=== PATIENT | female | born 1970 | race Caucasian/White ===

== ENCOUNTER 2021-03-04 13:23 | Emergency (ER) | payer BC, SELFPAY ==
[2019-01-05 16:54] VITALS: BMI 21.1
[2021-03-04 13:25] VITALS: BP 131/82; PULSE 87; RESP 14; TEMP 37.1; O2SAT 99; BMI 20.4
[2021-03-04 15:16] LABS: Bacteria 0 SEEN /hpf (None Seen); Mucous, Urine 0 SEEN /hpf (<or=2+); Red Blood Cells-Urine 0 SEEN /hpf (0-5); Squamous Epithelial Cells - UA 0 SEEN /hpf (5-10); White Blood Cells 0 SEEN /hpf (0-5)
[2021-03-04 15:18] LABS: Color, Urine Yellow (Yellow); Glucose, Dipstick Normal (Normal); Ketone-Dipstick 15 mg/dl (Negative); Leukocyte Esterase-Dipstick Negative /ul (Negative); Nitrite-Dipstick Negative (Negative); Occult Blood-Urine Negative /ul (Negative); Protein-Dipstick Negative (Negative); Urine Bilirubin Dipstick Negative (Negative); Urine Clarity Clear (Clear); Urine Urobilinogen Normal (Normal)
[2021-03-04 16:22] VITALS: BP 141/82; PULSE 65; RESP 14; O2SAT 99
--- NOTE | 2021-03-04 16:33 | CT_ITS ---
HISTORY: right groin/flank pain EXAMINATION: CT Abdomen And Pelvis W/ Contrast Injection TECHNIQUE: Helically acquired images were obtained of the abdomen and pelvis following IV contrast. A radiation dose optimization technique was used for this scan. IV Contrast dosage and agent: 100mL Isovue-300 Oral contrast: None. COMPARISON: None FINDINGS: LOWER CHEST: Lung bases are clear. No cardiomegaly or pericardial effusion. LIVER: Homogeneous. No focal mass. GALLBLADDER AND BILIARY TREE: No calcified gallstones. No gallbladder distension or wall edema. No intra- or extrahepatic biliary ductal dilation. PANCREAS: No focal cystic or solid mass. SPLEEN: Normal size without focal cystic or solid mass. ADRENAL GLANDS: No nodules. KIDNEYS AND URETERS: Normal renal size and position. No hydronephrosis. PERITONEUM: No ascites or free air. BOWEL: No evidence of acute appendicitis. No stomach or bowel distension. No focal inflammatory bowel wall changes. LYMPH NODES: No enlarged mesenteric or retroperitoneal lymph nodes. VESSELS: Aorta is non-dilated. URINARY BLADDER: Unremarkable. REPRODUCTIVE ORGANS: Uterus absent. 7.1 cm right adnexal cyst. ABDOMINAL WALL: No discrete abdominal or pelvic wall hernia. BONES: No acute or aggressive abnormality. CT/Abdomen/Pelvis W IV Cont ONLY IMPRESSION: 7.1 cm right adnexal cyst. Recommend gynecological consultation for possible excision. Otherwise no acute findings in the abdomen or pelvis. Individualized dose optimization techniques were used for this CT. at 1837 Reported and signed by: Twan Omalley MD Electronically Signed: Twan Omalley MD at 18:36 EDT Tel , Service support ,
--- NOTE | 2021-03-04 16:39 | EDS_ITS ---
HPI HPI - GI History of Present Illness Chief Complaint: Flank Pain Informant: patient Abdominal Pain/Flank Pain Onset: Weeks Timing: Intermittent Narrative Narrative: Patient is a 50-year-old female that denies any significant past medical history presenting with weeks of intermittent right flank pain. States that her right lower back and radiates to her groin. She states some days does not have another days last all day. She the pain yesterday but came back today. Her family was concerned it could be appendicitis which is why she finally came to emergency room. She is intermittently taken ibuprofen with no relief of her symptoms. Is not had any today. Has some associated nausea but no vomiting. No urinary symptoms. No abnormal vaginal discharge. Patient states she had a partial hysterectomy in the past. She describes the pain as like my ovary is in a vice environmental monitoring specialist. She states she is not sure if it is actually her ovary or not. She denies any fever or chills. She does state any radiation of pain down her leg. She denies any associated numbness or tingling. No saddle anesthesia. No midline back pain. No injuries. No other complaints at this time. She denies any known history of hernias. 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 PFSH PFS Home Medications NK 01/05/19 [History Last Taken Unknown] Allergy/AdvReac Type Severity Reaction Status Date / Time hydromorphone AdvReac Itching Verified 03/04/21 13:25 Surgical History History of partial hysterectomy Social History Smoking Status: Former smoker ROS ROS ED Constitutional Constitutional ED: Denies chills, fever(s) or malaise Eyes Eyes: Denies blurry vision or loss of vision ENT ENT ED: Denies rhinorrhea or sore throat Cardiovascular Cardiovascular: Denies chest pain or dizziness Respiratory/Chest Respiratory/Chest: Denies cough or dyspnea Gastrointestinal Gastrointestinal: Reports abdominal pain; Denies constipation, diarrhea or vomiting Genitourinary Genitourinary ED: Denies dysuria or hematuria Musculoskeletal Musculoskeletal: Denies arthralgias or myalgias Integumentary Denies rash or wounds Neurologic Neurologic: Denies focal weakness or headache(s) Psychiatric Psychiatric: Denies anxiety or behavioral changes EXAM Physical Exam Const Vital Signs: 03/04/21 13:25 03/04/21 16:22 03/04/21 17:30 Temperature 98.7 F Temperature Source Temporal Pulse Rate 87 65 Respiratory Rate 14 14 Blood Pressure 131/82 H 141/82 H 132/106 H Blood Pressure Mean 98 101 114 Pulse Ox 99 99 100 Oxygen Delivery Method Room Air Room Air Room Air 03/04/21 18:38 03/04/21 18:59 Temperature Temperature Source Pulse Rate Respiratory Rate Blood Pressure 138/85 H 140/87 H Blood Pressure Mean 102 Pulse Ox 98 100 Oxygen Delivery Method Room Air Positive well nourished, well developed and no apparent distress General Appearance ED: well developed HEENT Reports normocephalic atraumatic Nose: no nasal discharge General Ear: hearing grossly impaired External Ear: external ears normal Mouth ED: Yes moist mucous membranes abnormal Mouth: moist mucous membranes abnormal Eyes PERRL and EOMs intact bilaterally Neck full ROM and no meningeal signs Chest Wall inspection of chest normal Resp normal respiratory effort and normal air movement Cardio regular rate and regular rhythm GI normal to inspection, nondistended, normoactive bowel sounds and non-distended GI Narrative: Patient has tenderness to palpation and the right groin region. No palpable masses appreciated. No pain at McBurney's point. Auscultation: normoactive bowel sounds Palpation: soft; Negative for guarding or rigid Back/Spine no CVA tenderness Thoracic Spine / Upper Back: Negative for thoracic spinal tenderness Lumbar Spine / Lower Back: Negative for lumbar spinal tenderness Extremity normal to inspection and full ROM Neuro oriented x3 and no focal motor deficits Sensorium / Orientation: alert and oriented to person Motor Exam: Negative for general weakness Psych mental status grossly normal and thought process normal Skin no rashes or lesions noted and no wounds Rashes: no rashes MDM MDM MDM Narrative Medical decision making narrative: Patient evaluated for intermittent right groin pain that is been present for the past month. She is not had evaluated yet. Her exam she does have tenderness in her right groin. She appears nontoxic in no acute distress. I do not appreciate any palpable hernia. No overlying rash. Lab work including urinalysis, CBC and CMP are largely unremarkable. CT the abdomen pelvis does show a large 7 centimeter right adnexal cyst. I suspect this is the cause of her pain. She is counseled that she will need follow-up with gynecology for further evaluation of this. She is referred to gynecology on-call, Dr. Webb. She is to continue to use NSAID therapy for pain. Lab Data Attestation: I reviewed the patient's lab results. Labs: Laboratory Results - last 24 hr 03/04/21 03/04/21 03/04/21 14:35 14:35 14:46 WBC 9.4 RBC 4.56 Hgb 14.7 Hct 44.6 MCV 97.8 MCH 32.2 H MCHC 33.0 RDW Std Deviation 42.8 RDW Coeff of Roxann 11.8 Plt Count 246 MPV 9.9 Immature Gran % (Auto) 0.300 Neut % (Auto) 74.0 H Lymph % (Auto) 18.3 L [place] % (Auto) 6.0 Eos % (Auto) 0.9 Baso % (Auto) 0.5 Absolute Neuts (auto) 6.9 Absolute Lymphs (auto) 1.72 Nucleated RBC % 0 Sodium 139 Potassium 3.7 Chloride 106 Carbon Dioxide 27.0 Anion Gap 6 BUN 9 Creatinine 0.72 Estim Creat Clear Calc 91.87 Est GFR (MDRD) Af Amer 111 Est GFR (MDRD) Non-Af 92 BUN/Creatinine Ratio 12.5 Glucose 95 Calcium 9.7 Total Bilirubin 0.90 AST 21 ALT 22 Alkaline Phosphatase 93 Total Protein 8.4 H Albumin 4.4 Globulin 4.0 Albumin/Globulin Ratio 1.1 Urine Color Yellow Urine Clarity Clear Urine pH 6.0 Ur Specific [place] 1.010 Urine Protein Negative Urine Glucose (UA) Normal Urine Ketones 15 H Urine Occult Blood Negative Urine Nitrite Negative Urine Bilirubin Negative Urine Urobilinogen Normal Ur Leukocyte Esterase Negative Urine RBC 0 SEEN Urine WBC 0 SEEN Ur Squamous Epith Cells 0 SEEN Urine Bacteria 0 SEEN Urine Mucus 0 SEEN Radiography Diagnostic Testing: Radiology Impression Abdomen/Pelvis CT 03/04/21 16:33 IMPRESSION: 7.1 cm right adnexal cyst. Recommend gynecological consultation for possible excision. Otherwise no acute findings in the abdomen or pelvis. Individualized dose optimization techniques were used for this CT. at 1837 Reported and signed by: Twan Omalley MD Electronically Signed: Twan Omalley MD at 18:36 EDT Tel , Service support , Discharge Plan Triage Chief Complaint: Flank Pain ED Provider: Amber Malone Dx/Rx/DC Orders Clinical Impression: Right adrenal mass Instructions: ED Ovarian Cyst Prescriptions: No Action NK RF: 0 Primary Care Provider: Care Physician,No Primary Referrals: Francisco Webb MD [STAFF PHYSICIAN] - Care Physician,No Primary [Primary Care Provider] - Activity Restrictions/Additional Instructions: Alternate Tylenol and ibuprofen for pain. You have a cyst in the right adnexal/ovarian area that is likely causing her pain. Disposition Disposition: Home, Self Care Discharge Date/Time: 03/04/21 19:08
[2021-03-04] MEDS: Ketorolac 15 MG/ML Vial IV (16:50)
[2021-03-04 17:30] VITALS: BP 132/106; O2SAT 100
[2021-03-04 17:37] LABS: Absolute Lymphocyte Count 1.72 X10^3/uL (0.83-4.51); Absolute Neutrophil Count 6.9 X10^3/uL (2.0-7.7); Basophil# 0.05 X10^3/uL; Basophil% 0.5 % (0-1); Eosinophil# 0.08 X10^3/uL; Eosinophils% 0.9 % (0-5); Hematocrit 44.6 % (37-47); Hemoglobin 14.7 g/dL (12.0-15.0); Lymphocyte # 1.72 X10^3/ul (0.83-4.51); Lymphocyte % 18.3 % (19-41); Mean Corpuscular Hgb 32.2 pg (27.0-32.0); Mean Corpuscular Volume 97.8 fL (81-99); Mean Platelet Vol. 9.9 fl (6.2-12.0); Monocyte# 0.56 X10^3/uL; NRBC Flagged by Analyzer 0 % (0-5); Neutrophil # 6.94 X10^3/uL (2.7-7.7); Platelet Count 246 K/mm3 (150-450); RBC Distribution Width CV 11.8 % (11.6-14.6); RBC Distribution Width SD 42.8 fl (35.1-43.9); Red Blood Count 4.56 M/mm3 (4.2-5.4); White Blood Count 9.4 K/mm3 (4.4-11.0)
[2021-03-04 17:50] LABS: ALB/GLOB Ratio 1.1 RATIO (0.9-2.4); AST(SGOT) 21 U/L (15-37); Alanine Aminotransfer ALT/SGPT 22 U/L (13-56); Albumin, Serum 4.4 g/dL (3.2-5.0); Alkaline Phosphatase 93 U/L (45-117); Anion Gap 6 (5-15); BUN 9 mg/dL (7-18); BUN/Creat Ratio 12.5 RATIO (10-20); Calcium,Total 9.7 mg/dL (8.5-10.1); Chloride 106 mmol/L (98-107); Creatinine, Serum 0.72 mg/dL (0.55-1.02); EST Glomerular Filtration Rate 92 mL/min (>60); Est Glom Filt Rate - Afr Amer 111 mL/min (>60); Estimated Creatinine Clearance 91.87 ml/min; Glucose 95 mg/dL (74-106); Potassium 3.7 mmol/L (3.5-5.1); Protein, Total 8.4 g/dL (6.4-8.2); Sodium Level 139 mmol/L (136-145)
[2021-03-04 18:38] VITALS: BP 138/85; O2SAT 98
[2021-03-04 18:59] VITALS: BP 140/87; O2SAT 100
== END 2021-03-04 19:08 | disposition home or self-care (01) ==
PROVIDERS: Emergency Provider Emergency Medicine
DX: E27.9 Disorder of adrenal gland, unspecified (principal); Z87.891 Personal history of nicotine dependence
CPT/HCPCS: 74177; 80053; 81001; 85025; 96374; 99285; Q9967; A4216

== ENCOUNTER → 2021-03-11 14:31 | Outpatient (CLI) | payer BC, SELFPAY ==
[2021-03-04 13:25] VITALS: BMI 20.4
[2021-03-11 15:09] LABS: Hematocrit 39.8 % (37-47); Hemoglobin 13.5 g/dL (12.0-15.0); Mean Corp Hgb Conc 33.9 g/dL (32-36); Mean Corpuscular Hgb 32.8 pg (27.0-32.0); Mean Corpuscular Volume 96.6 fL (81-99); Mean Platelet Vol. 9.7 fl (6.2-12.0); Platelet Count 234 K/mm3 (150-450); RBC Distribution Width CV 11.8 % (11.6-14.6); Red Blood Count 4.12 M/mm3 (4.2-5.4); White Blood Count 7.1 K/mm3 (4.4-11.0)
[2021-03-15 09:44] LABS: Cancer Antigen 125 7.1 U/mL (0.0-38.1); Carbohydrate Ag 19-9 2261 10 U/mL (0-35); Carcinoembryonic Antigen 4.7 ng/mL (0.0-4.7)
== END ==
PROVIDERS: Visit Provider Obstetrics & Gynecology
DX: R19.07 Generalized intra-abdominal and pelvic swelling, mass and lump (principal); N83.209 Unspecified ovarian cyst, unspecified side
CPT/HCPCS: 36415; 82378; 85027; 86301; 86304; 86900; 86901

== ENCOUNTER 2021-03-20 07:31 | Day surgery (SDC) | payer BC, SELFPAY ==
[2021-03-20] VITALS (8 sets, daily range): BP systolic 114–144; BP diastolic 69–91; PULSE 64–87; RESP 14–18; TEMP 36.5–37; O2SAT 98–100; BMI 21.0
[2021-03-20] MEDS: Lactated Ringers 1,000 ML 100 ML IV (07:40)
--- NOTE | 2021-03-20 08:27 | HP.PCM.OB_ITS ---
History and Physical Date of Admission: 03/20/21 Surgical History and Physical Name: AYLEEN MARTINEZ Age: 50 Date of : 1970 Ayleen Martinez, a 50 year old female 2 0 0 0 2, presents for Diagnostic laparoscopy, right ovarian cystectomy, possible right oophorectomy on March 20 at 8 :30. -- -- Ayleen presents here today as referral from [facility] ED for a 7 cm (R) Ovarian Cyst found on CT Scan on 03-04-21 when she presented there in severe pain. 50 y.o. G 2 P 2 previous smoker(quit many years ago) with history of Hysterectomy in [address] Landa at [facility]. Reports about a month ago, she started with a cramping/twinge type pain on her RLQ that progressively worsened and she went to ED as she could not walk or move without severe pain. Currently rotating Ibuprofen, Tylenol and Aleve every 4 to 6 hours and this hardly contains the pain at this time. MEDICATIONS HISTORY: ALLERGIES: Dilaudid, Severe nausea & vomiting Infections - Chicken pox Illnesses - no serious past illnesses Accidents - None Hospitalizations - see surgery Review of Systems: GENERAL - severe pain RLQ SKIN - Denies skin changes EYES - Denies visual changes EARS - Denies difficulty hearing NOSE - Denies nasal congestion or bleeding MOUTH - Denies sore throat or difficulty swallowing NECK - Denies pain or swelling RESPIRATORY - Denies shortness of breath or wheezing CARDIOVASCULAR - Denies palpitations or chest pain GASTROINTESTINAL - Denies nausea, vomiting, diarrhea, constipation GENITOURINARY - Denies dysuria, frequency of urination, incontinence of urine MUSCULOSKELETAL - Denies joint or muscle pain NEUROLOGICAL - Denies localized numbness or weakness PSYCHIATRIC - Denies depression or anxiety ENDOCRINE - Denies heat or cold intolerance, weight loss or gain HEMATO-IMMUNOLOGIC - Denies excesive bleeding with cuts SOCIAL HISTORY: Alcohol Use - occasionally Smoking - used to smoke but quit Diet - no special diet Lifestyle - moderate stress lifestyle and Exercise - active Seat Belt Use - always Employer - [employer] Member Illicit Drug Use - None Sexual Activity - Spouse-Sig Other Name - Bill Spouse-Sig Other Occupation - [employer] Children Name(s) - 2 children Control - Prior Hysterectomy FAMILY HISTORY: MENSTRUAL HISTORY: LMP Known?- Prior Hysterectomy PAST PREGNANCIES: Total Pregnancies - 2; Full Term Pregnancies - 2; Premature - 0; Abortions, Induced - 0; Abortions, Spontaneous - 0; Ectopics - 0; Multiple Births - 0; Living Children - 2 SURGICAL HISTORY: 1. 2002 MAMADOU ; Syeda Padilla - 2. 2000 Laparoscopy ; Dr. Landa - PHYSICAL EXAM BP- 144/82 Sitting, Right arm, regular cuff Weight- 137.51161 lbs Height- 66.5 inch BMI:21.83 CONSTITUTIONAL - NAD, well nourished, and well developed SKIN - No rash, lesions, or ulcers HEENT - Normocephalic, PERRLA, EOMI NECK - No nodes, no nuchal rigidity and thyroid normal size and texture ABDOMEN - Right lower quadrant tender to deep palpation. Bloated, mildly distended right greater than left. and No rebound tenderness or guarding. Negative Rovsing sign EXTREMITIES - No edema or calf tenderness NEUROLOGICAL - Cranial nerves II-XII grossly intact PSYCHIATRIC - A and O to time, place, person, mood and affect ASSESSMENT/PLAN: 1. Unspecified Ovarian Cyst, Right Side Patient with pelvic pain that comes and goes right greater than the left. Noticed this months ago and has increased in pain. Continues to be intermittent but now excruciating pain at times. Seen at [facility] on CT scan found to have 7 cm right ovarian Patient status post MAMADOU BS. Still has both ovaries. History of endometriosis. Ultrasound today with flow to both ovaries. 7 cm endometrioma appearance cyst noted on right ovary. Educated patient on findings. Discussed risk benefits alternatives including surgical options. Patient elects for diagnostic laparoscopy, right ovarian cystectomy, possible right.
--- NOTE | 2021-03-20 09:00 | OV_PTH ---
PATIENT: AYLEEN AHMADI [place] [facility] [place][id number] AGE/SX: 50/F ROOM: RE03/20/[address]: Dr. Peter Rodriguez MD : 1970 BED: DIS: 03/20/2021 SPEC #: [id number] RECD: 03/20/21 10:09 STATUS: CHITRA EARNEST #: [id number] DOTTY: 03/20/21 09:[address]: Peter Rodriguez DEPT: SURGICAL PATHOLOGY RECD BY: Ursula Erwin ENTERED: 03/20/21 13:33 SP TYPE: OVARY OTHR DR: No Primary Care Phys Tissues: Right ovary Procedures: Decalcification bone/plaque Special Stain Group II Mucicarmine Stain (control) Surgery Specimen Level V HEADER OPERATION: Diagnostic laparoscopy, right ovarian cystectomy PRE-OP DIAGNOSIS: Right side ovarian cyst TISSUE SUBMITTED: Right ovary and right fallopian tube MICROSCOPIC DIAGNOSIS Right ovary and fallopian tube, salpingo-oophorectomy: 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 See comment. Right fallopian tube - no pathologic diagnosis. Tubo-ovarian adhesions. A piece of adipose tissue with extensive fat necrosis and calcification, consistent with infarcted and calcified appendix epiploica. SJ:rg 03/23/2021 COMMENT Mucin stain with matched control is used in the evaluation of the specimen and tumor cells are positive for mucin. Case has been reviewed in consultation with Dr. Gonzalez who concurs with the above diagnosis. IDC:AM MICROSCOPIC DESCRIPTION Slides are reviewed. GROSS DESCRIPTION Received in fixative is one container labeled with the patient's name and designated right ovary and fallopian tube. The specimen consists of a cystic ovary with adherent fallopian tube. The cystic ovary measures 7 x 5 x 2 cm. The external surface is smooth and glistening. The adherent fallopian tube measures 7.5 cm and with a diameter of 0.6 cm. Also present free in the container is an ovoid fragment of chalky, yellow tissue measuring 1 cm in greatest dimension. The external surface of the ovary and fallopian tube is inked in black ink and the specimen serially sectioned. The cyst wall ranges in thickness from 0.1 to 1.2 cm. Oliver Filter Operator sections are submitted in six cassettes as follows: 1-5 - ovary and fallopian tube, 6 - chalky, yellow tissue (after decalcification). / AM:ghada 03/20/21 TC:1 CPT: 62969, 23582, 47463
--- NOTE | 2021-03-20 10:09 | PCM.OPRPT ---
Report of Operation Date of Procedure: 03/20/21 Pre-Operative Diagnosis: Pelvic pain, ovarian cyst Post-Operative Diagnosis: Right ovarian torsion, right ovarian cyst, pelvic pain Description of Surgical Findings:: Procedure: Diagnostic laparoscopy, right salpingo-oophorectomy Surgeon: Peter Rodriguez MD Anesthesia: General EBL: 25 cc Urine output: 500 cc IV fluids: 1000 cc Complications: None Specimen: Right fallopian tube and right ovary Findings: Status post hysterectomy. Right fallopian tube and ovary with torsion, no necrosis noted on ovary tube. Ovary detorsed and 6 cm cyst noted to be engulfing the entirety of the right ovary, no nonpathologic right ovarian tissue was noted. Left ovary within normal limits. No other pathology noted. Consent: Patient with pelvic pain, right greater than left. Noted to have right ovarian cyst. Patient for diagnostic laparoscopy possible right ovarian cystectomy, possible right oophorectomy. Patient understands the risk of the procedure include but are not limited to visceral or vascular injury, prolonged hospitalization, blood loss and need for transfusion, reoperation. Patient state understanding wish to proceed. All questions were answered and consent was signed. Procedure: Patient was brought back to the OR where general anesthesia found to be adequate. Patient was prepared and draped in a dorsal lithotomy position with yellowfin stirrups. Varies needle was inserted at the umbilicus, water safety test was passed, abdomen was insufflated. 5 mm infraumbilical midline trocar was inserted under direct visualization. Laparoscope was inserted and above findings were noted. Left lower quadrant 5 mm trocar was placed under direct visualization. Right lower quadrant 12 mm trocar was placed under direct visualization. Using an atraumatic grasper the right ovary and fallopian tube were detorsed. Ureters were identified and noted to be out of the operative field. Using an atraumatic grasper and a LigaSure device the right IP ligament was noted cut and cauterized right fallopian tube was cut and cauterized. Endo Catch bag was inserted, right fallopian tube and ovary placed into Endo Catch bag. Right fallopian tube and ovary removed from the abdominal cavity and sent to pathology. Good hemostasis was noted at operative site. 12 mm trocar fascia was closed under direct visualization with fascial closure device. Trochars were removed under direct visualization. Abdomen was desufflated good hemostasis was noted. Skin was closed in subcuticular fashion. All counts correct x2. Patient tolerated procedure well was brought to recovery in a stable condition. real estate legal secretary: Helena Samayoa
--- NOTE | 2021-03-20 10:16 | PCM.DC ---
Discharge Instructions Diet Discharge Diet: No restrictions Activity Discharge Activity: Return to Normal Activity, May Drive and May Shower May resume sexual activity in: 4-6 weeks Lifting Restrictions: No lifting over 25 pounds for 2 to 3 weeks Dressing / Incision Call your doctor if your incision/area has: Continuous Slow Oozing and Foul Smelling Discharge Call your doctor if you observe: Fever of 101 or Higher, Shortness of breath and Chest pain Follow Up Care Please Follow Up With: Peter Rodriguez MD When: Follow-up 2 weeks postoperatively Test Results: Test results from this visit will be discussed in further detail at your follow-up appointment, if applicable. Discharge Plan Admission Attending Provider: Peter Rodriguez Primary Care Provider: Care Physician,Geetha Primary Discharge Orders/Prescriptions Prescriptions: No Action NK RF: 0 Disposition Discharge Orders: Discharge Patient (Routine); Ordered 03/20/21 Ordered By: Dr. Peter Rodriguez
== END 2021-03-20 12:11 | disposition home or self-care (01) ==
LOC: SDC 07:31 → AC 07:32
PROVIDERS: Anesthesiology; Referring Provider Obstetrics & Gynecology; Visit Provider Obstetrics & Gynecology
PROC: (CPT 49320; principal; 2021-03-20 08:45)
DX: D27.0 Benign neoplasm of right ovary (principal); Z87.891 Personal history of nicotine dependence
CPT/HCPCS: 58661; 87635; 88305; 88307; 88311; 88313; J7120; U0005; J2405; U0003

== ENCOUNTER → 2021-07-21 09:02 | Outpatient (CLI) | payer BC, SELFPAY ==
[2021-07-21 09:49] LABS: Cholesterol 190 mg/dL (200); High Density Lipoprotein 85 mg/dL; Triglycerides 100 mg/dL; Very Low Density Lipoprotein 20 mg/dL (5-40)
== END ==
PROVIDERS: Visit Provider Obstetrics & Gynecology
DX: Z13.220 Encounter for screening for lipoid disorders (principal); Z13.1 Encounter for screening for diabetes mellitus
CPT/HCPCS: 36415; 80061; 83036

== ENCOUNTER → 2021-07-21 09:40 | Outpatient (CLI) | payer BC, SELFPAY ==
--- NOTE | 2021-07-21 09:42 | BI_ITS ---
MAMMOGRAPHY - BILATERAL SCREENING REASON FOR EXAM: Female, 51 years old. Routine annual screening examination. PERTINENT HISTORY: Non-contributory. TECHNIQUE: Digital bilateral breast elizabeth (3D mammographic acquisition) in the CC and MLO projections. 2-D mediolateral oblique (MLO) and craniocaudad (CC) views of both breasts were obtained. CAD: Full Field Digital Mammography with Computer Added Detection was performed. COMPARISON: None. Baseline examination. FINDINGS: Breast Composition: The breasts are heterogeneously dense, which may obscure small masses. There are no dominant masses or suspicious calcifications. No other significant abnormalities are identified. BI/SCRN MAMM (CAD)W/ELIZABETH BILAT IMPRESSION: Negative screening mammogram. Yearly followup mammogram recommended. (A) ASSESSMENT CATEGORY: BIRADS Category 1: Negative. A letter regarding these results will be sent to the patient by the facility within 30 days. Approximately 10% of breast cancers are not detected by mammography. A normal mammogram should not delay biopsy of a clinically suspicious abnormality. [id number] Electronically Signed: Dejan Oliveros MD at 10:45 EST , Service support ,
== END ==
PROVIDERS: Referring Provider Obstetrics & Gynecology; Visit Provider Obstetrics & Gynecology
DX: Z12.31 Encounter for screening mammogram for malignant neoplasm of breast (principal)
CPT/HCPCS: 77063; 77067